=== PATIENT | male | born 1955 | race American Indian/Alaskan Native ===

== ENCOUNTER 2017-05-08 14:03 | Emergency (ER) | payer MEDICARE ==
[2017-05-08 14:05] VITALS: BMI 26.6
[2017-05-08 14:23] VITALS: PULSE 109; RESP 16; TEMP 98.6; O2SAT 100
--- NOTE | 2017-05-08 14:24 | ED PDOC ---
Arrival/HPI - General Chief Complaint: Headache Time Seen by Provider: 05/08/17 14:03 Historian: Patient - History of Present Illness Narrative History of Present Illness (Text): 05/08/17 14:21 A 61 year old male whose past medical history includes, cerebral atrophy and hypertension, presents to the Emergency department with two day duration dizziness, mild headache, and blurry vision. The patient describes that he feels a room spinning sensation. The patient denies any current pain. Patient denies fever, chills, cough, chest pain, shortness of breath, nausea, vomiting, diarrhea, or an other complaints. PMD: Dr. Bruno Medina Time/Duration: Other (2 days) Symptom Onset: Sudden Symptom Course: Unchanged Activities at Onset: Rest, Light Context: Home Past Medical History - Provider Review Nursing Documentation Reviewed: Yes - Cardiac Hx Cardiac Disorders: Yes Hx Hypertension: Yes - Pulmonary Hx Respiratory Disorders: No - Neurological Hx Neurological Disorder: No - HEENT Hx HEENT Disorder: No Hx Blind: No - Renal Hx Renal Disorder: No - Endocrine/Metabolic Hx Endocrine Disorders: No - Hematological/Oncological Hx Blood Disorders: No - Integumentary Hx Dermatological Disorder: No - Musculoskeletal/Rheumatological Hx Musculoskeletal Disorders: No - Gastrointestinal Hx Gastrointestinal Disorders: No - Genitourinary/Gynecological Hx Genitourinary Disorders: No - Psychiatric Hx Psychophysiologic Disorder: No Hx Substance Use: No Family/Social History - Physician Review Nursing Documentation Reviewed: Yes Family/Social History: No Known Family HX Smoking Status: Never Smoked Hx Alcohol Use: No Hx Substance Use: No Allergies/Home Meds Allergies/Adverse Reactions: Allergies meclizine Adverse Reaction (Verified 05/08/17 14:39) DIZZINESS Home Medications: Home Meds Medication Instructions Recorded Confirmed Unobtainable 05/08/17 05/08/17 Review of Systems - Physician Review All systems were reviewed & negative as marked: Yes - Review of Systems Constitutional: absent: Fevers, Night Sweats Eyes: Vision Changes (Blurry Vision) Respiratory: absent: SOB, Cough Cardiovascular: absent: Chest Pain Gastrointestinal: absent: Abdominal Pain, Diarrhea, Nausea, Vomiting Neurological: Headache, Dizziness Physical Exam Vital Signs Reviewed: Yes Vital Signs Temp Pulse Resp BP Pulse Ox 05/08/17 16:34 156/91 H 05/08/17 16:07 160/103 H 05/08/17 14:12 98.6 F 109 H 16 156/108 H 100 Temperature: Afebrile Blood Pressure: Hypertensive Pulse: Tachycardic Respiratory Rate: Normal Appearance: Positive for: Well-Appearing, Non-Toxic, Comfortable Pain Distress: None Mental Status: Positive for: Alert and Oriented X 3 - Systems Exam Head: Present: Atraumatic, Normocephalic Pupils: Present: PERRL Extroacular Muscles: Present: EOMI Conjunctiva: Present: Normal Mouth: Present: Moist Mucous Membranes Neck: Present: Normal Range of Motion Respiratory/Chest: Present: Clear to Auscultation, Good Air Exchange. No: Respiratory Distress, Accessory Muscle Use Cardiovascular: Present: Regular Rate and Rhythm, Normal S1, S2. No: Murmurs Abdomen: Present: Normal Bowel Sounds. No: Tenderness, Distention, Peritoneal Signs Back: Present: Normal Inspection Upper Extremity: Present: Normal Inspection. No: Cyanosis, Edema Lower Extremity: Present: Normal Inspection. No: Edema Neurological: Present: GCS=15, CN II-XII Intact, Speech Normal Skin: Present: Warm, Dry, Normal Color. No: Rashes Psychiatric: Present: Alert, Oriented x 3, Normal Insight, Normal Concentration Medical Decision Making ED Course and Treatment: 05/08/17 14:26 Impression: A 61 year old male with 2 day duration dizziness, blurry vision, and mild headache. Plan: -- EKG -- Head CT -- Urinalysis -- Labs -- Anivert -- Reassess and disposition Progress Notes: 05/08/17 14:23 EKG: Ordered, reviewed, and independently interpreted the EKG. Rate : 108 BPM Rhythm : Tachycardic Interpretation : No ST/T-wave changes. 05/08/17 14:27: Patient's orthostatic test negative. CT HEAD WITHOUT CONTRAST Dictator : Amos Urbano MD Report Date : 05/08/2017 15:07:14 IMPRESSION: No acute intracranial abnormalities. No significant findings to account for the clinical presentation. 05/08/17 15:57 pt reassesed: states symptoms persistnt offered overnight observation in hospital, r/o cva, as pt with vertigo/blurry vision pt refuses, but agrees to stay in ER for further obs. 05/08/17 16:32 pt reassesed: now asking for d/c. does not wish observation in hospital for dizziness/blurry vision., r/o cva. pt refuses. asking for d.c 05/08/17 16:53 Leaving Against Medical Advice (AMA): The patient is choosing to leave against medical advice. I have personally explained to the patient that choosing to do so may result in permanent bodily harm or . I have discussed at great length that without further evaluation and monitoring there may be unforeseen circumstances and/or deterioration causing permanent bodily harm or as a result of their choice. The patient is alert, oriented, and shows the mental capacity to make clear decisions regarding the patients health care at this time. The patient continues to wish to leave against medical advice. In light of the patients decision to leave against medical advice, the importance of follow-up has been discussed. The patient has been advised that they should return to the emergency room immediately if they change their mind at any time, or if their condition begins to change or worsen in any way. - Lab Interpretations Lab Results: 05/08/17 14:41 05/08/17 14:41 Lab Results 05/08/17 14:41: Sodium 135, Potassium 3.8, Chloride 103, Carbon Dioxide 22, Anion Gap 14, BUN 12, Creatinine 1.1, Est GFR ( Amer) > 60, Est GFR (Non- Af Amer) > 60, Random Glucose 116 H, Calcium 9.5, Magnesium 1.9, Total Bilirubin 0.7, AST 38, ALT 29, Alkaline Phosphatase 87, Lactate Dehydrogenase 615, Total Creatine Kinase 180, Troponin I < 0.01, Total Protein 8.3, Albumin 4.0, Globulin 4.3, Albumin/Globulin Ratio 0.9 L 05/08/17 14:41: PT 11.2, INR 1.04, APTT 27.5 05/08/17 14:41: WBC 10.6, RBC 5.16, Hgb 13.7 L, Hct 40.4 L, MCV 78.3 L, MCH 26.6 , MCHC 33.9, RDW 13.7, Plt Count 286, MPV 9.8, Gran % 40.2 L, Lymph % (Auto) 48.8 H, [place] % (Auto) 10.4 H, Eos % (Auto) 0.4 L, Baso % (Auto) 0.2, Gran # 4.26 , Lymph # 5.2 H, [place] # 1.1 H, Eos # 0.0, Baso # 0.02 05/08/17 14:20: Urine Color Yellow, Urine Appearance Clear, Urine pH 6.5, Ur Specific [place] 1.025, Urine Protein Trace H, Urine Glucose (UA) Negative, Urine Ketones Negative, Urine Blood Negative, Urine Nitrate Negative, Urine Bilirubin Negative, Urine Urobilinogen 4.0 H, Ur Leukocyte Esterase Negative, Urine RBC 0 - 2, Urine WBC 0 - 2, Ur Epithelial Cells 0 - 2, Urine Bacteria Large - RAD Interpretation Radiology Orders: 05/08/17 14:20 HEAD W/O CONTRAST [CT] Stat - Medication Orders Current Medication Orders: Discontinued Medications Diazepam (Valium) 2.5 mg IVP STAT STA PRN Reason: Protocol Stop: 05/08/17 16:02 Last Admin: 05/08/17 16:10 Dose: 2.5 mg Sodium Chloride (Sodium Chloride 0.9%) 1,000 mls @ 999 mls/hr IV .Q1H1M STA Stop: 05/08/17 15:57 Last Admin: 05/08/17 15:00 Dose: 999 mls/hr Meclizine HCl (Antivert) 50 mg PO STAT STA Stop: 05/08/17 14:21 Last Admin: 05/08/17 14:41 Dose: Not Given Non-Admin Reason: Patient Refused - Scribe Statement The provider has reviewed the documentation as recorded by the Mono Florez Provider Scribe Attestation: All medical record entries made by the Scribe were at my direction and personally dictated by me. I have reviewed the chart and agree that the record accurately reflects my personal performance of the history, physical exam, medical decision making, and the department course for this patient. I have also personally directed, reviewed, and agree with the discharge instructions and disposition. Disposition/Present on Arrival - Present on Arrival Any Indicators Present on Arrival: No History of DVT/PE: No History of Uncontrolled Diabetes: No Urinary Catheter: No History of Decub. Ulcer: No History Surgical Site Infection Following: None - Disposition Have Diagnosis and Disposition been Completed?: No Diagnosis: Dizziness, Headache Disposition: AGAINST MEDICAL ADVICE Disposition Time: 16:33 Condition: UNKNOWN Discharge Instructions (ExitCare): Acute Headache (ED), Dizziness (ED) Additional Instructions: please follow up with your doctor. return to er with worsening symptoms or concerns. Referrals: Bruno Medina JD, MD [Primary Care Provider] - Follow up with primary [facility] [Outside] - Follow up with primary Carlos Francis MD [Staff Provider] - Follow up with primary Naif Francis MD [Staff Provider] - Follow up with primary Forms: [employer] ([place])
[2017-05-08] MEDS ORDERED: Sodium Chloride 0.9% 1,000 ML IV STA (14:57)
[2017-05-08 14:59] LABS: BASO # 0.02 K/mm3 (0.0-2.0); BASO % 0.2 % (0.0-3.0); EOS % 0.4 % (1.5-5.0); GRAN # 4.26 (1.4-6.5); GRAN % 40.2 % (50.0-68.0); HEMOGLOBIN 13.7 g/dL (14.0-18.0); LYMPH # 5.2 (1.2-3.4); LYMPH % 48.8 % (22.0-35.0); MEAN CELL VOLUME 78.3 fl (80.0-105.0); MEAN CORPUSCULAR HEMOGLOBIN 26.6 pg (25.0-35.0); MEAN CORPUSCULAR HGB CONC 33.9 g/dl (31.0-37.0); MEAN PLATELET VOLUME 9.8 fl (7.0-11.0); MONO # 1.1 (0.1-0.6); MONO % 10.4 % (1.0-6.0); PLATELET COUNT 286 10^3/uL (120.0-450.0); RBC 5.16 10^6/uL (3.5-6.1); RED CELL DISTRIBUTION WIDTH 13.7 % (11.5-14.5); WHITE BLOOD COUNT 10.6 10^3/ul (4.5-11.0)
[2017-05-08 15:02] LABS: ALB/GLOB RATIO 0.9 (1.1-1.8); ALT/SGPT 29 U/L (7-56); AST/SGOT 38 U/L (15-59); BLOOD UREA NITROGEN 12 mg/dL (7-21); CALCIUM 9.5 mg/dL (8.4-10.5); GFR AFRICAN-AMERICAN > 60; GFR NON-AFRICAN AMERICAN > 60; MAGNESIUM 1.9 mg/dL (1.7-2.2)
[2017-05-08 15:06] LABS: INR 1.04 (0.93-1.08); PARTIAL THROMBOPLASTIN TIME 27.5 Seconds (23.7-30.8); PROTHROMBIN TIME 11.2 Seconds (9.9-11.8)
--- NOTE | 2017-05-08 15:08 | CT ---
PROCEDURE: CT HEAD WITHOUT CONTRAST. HISTORY: dizziness COMPARISON: None available. TECHNIQUE: Axial computed tomography images were obtained through the head/brain without intravenous contrast. Radiation dose: Total exam DLP = 725.84 mGy-cm. This CT exam was performed using one or more of the following dose reduction techniques: Automated exposure control, adjustment of the mA and/or kV according to patient size, and/or use of iterative reconstruction technique. FINDINGS: HEMORRHAGE: No intracranial hemorrhage. BRAIN: No mass effect or edema. No atrophy or chronic microvascular ischemic changes. VENTRICLES: Unremarkable. No hydrocephalus. CALVARIUM: Unremarkable. PARANASAL SINUSES: Unremarkable as visualized. No significant inflammatory changes. MASTOID AIR CELLS: Unremarkable as visualized. No inflammatory changes. OTHER FINDINGS: None. IMPRESSION: No acute intracranial abnormalities. No significant findings to account for the clinical presentation.
[2017-05-08 15:15] LABS: TROPONIN I < 0.01 ng/mL
[2017-05-08 15:34] LABS: PH,URINE 6.5 (4.7-8.0); URINE BILIRUBIN NEGATIVE (NEGATIVE); URINE BLOOD NEGATIVE (NEGATIVE); URINE GLUCOSE (UA) NEGATIVE (NEGATIVE); URINE LEUKOCYTE ESTERASE NEGATIVE Leu/uL (NEGATIVE); URINE NITRATE NEGATIVE (NEGATIVE); URINE PROTEIN TRACE mg/dL (<30 mg/dL)
[2017-05-08 15:37] LABS: URINE APPEARANCE CLEAR (CLEAR); URINE COLOR YELLOW (YELLOW)
[2017-05-08] MEDS ORDERED: diaZEpam 10 mg/2 ml Inj IVP STA (16:01)
[2017-05-08 16:23] LABS: URINE EPITHELIAL CELLS 0 - 2 /hpf (0-5); URINE RBC 0 - 2 /hpf (0-2); URINE WBC 0 - 2 /hpf (0-6)
[2017-05-08 16:24] LABS: URINE BACTERIA LARGE (NEG)
[2017-05-08 16:34] VITALS: BP 156/91
--- NOTE | 2017-05-09 13:22 | CARD ---
APPROVED REPORT EKG Measurement Heart [id number] TN 132P57 [id number] <Conclusion> Sinus tachycardia Minimal voltage criteria for LVH, may be normal variant Borderline ECG
== END 2017-05-08 17:09 | disposition left against medical advice (07) ==
LOC: ED 14:03
DX: R51 Headache (principal); R42 Dizziness and giddiness; I10 Essential (primary) hypertension; G31.9 Degenerative disease of nervous system, unspecified
CPT/HCPCS: 70450; 80053; 81001; 82550; 83615; 83735; 84484; 85025; 85610; 85730; 93005; 96361; 96374; 99285; J3360; J7040

== ENCOUNTER 2017-05-14 16:11 | Emergency (ER) | payer MEDICARE ==
[2017-05-14 16:11] VITALS: BMI 26.6
--- NOTE | 2017-05-14 16:37 | ED PDOC ---
Arrival/HPI - General Chief Complaint: Palpitations Time Seen by Provider: 05/14/17 16:21 Historian: Patient - History of Present Illness Narrative History of Present Illness (Text): 05/14/17 16:34 61 yo male with h/o HTN, Cerebral Atrophy, presents to the ED c/o palpitations and "feeling like I'm going to pass out". He states that he was watching television around 1pm when he started feeling a fullness in his forehead, then he started to get blurry vision and the feeling like he was going to pass out. Associated with palpitations. When he lays down it's worse. No headache but just a fullness he states. No trouble speaking or numbness. Has generalized weakness but no unilateral weakness. No trouble walking. He states he has thirt. Family history of diabetes. No trouble. No URI symptoms, cough, or urinary symptoms. No neck pain or rigidity. PMD: Dr. Bruno Medina 05/14/17 16:37 Past Medical History - Provider Review Nursing Documentation Reviewed: Yes - Infectious Disease Hx of Infectious Diseases: None - Cardiac Hx Cardiac Disorders: Yes Hx Hypertension: Yes - Pulmonary Hx Respiratory Disorders: No - Neurological Hx Neurological Disorder: No - HEENT Hx HEENT Disorder: No Hx Blind: No - Renal Hx Renal Disorder: No - Endocrine/Metabolic Hx Endocrine Disorders: No - Hematological/Oncological Hx Blood Disorders: No - Integumentary Hx Dermatological Disorder: No - Musculoskeletal/Rheumatological Hx Musculoskeletal Disorders: No - Gastrointestinal Hx Gastrointestinal Disorders: No - Genitourinary/Gynecological Hx Genitourinary Disorders: No - Psychiatric Hx Psychophysiologic Disorder: No Hx Substance Use: No Family/Social History - Physician Review Nursing Documentation Reviewed: Yes Family/Social History: Diabetes Smoking Status: Never Smoked Hx Alcohol Use: No Hx Substance Use: No Allergies/Home Meds Allergies/Adverse Reactions: Allergies meclizine Adverse Reaction (Verified 05/08/17 14:39) DIZZINESS Review of Systems - Physician Review All systems were reviewed & negative as marked: Yes - Review of Systems Constitutional: Normal Eyes: Normal ENT: Normal Respiratory: Normal Cardiovascular: Normal Gastrointestinal: Normal Genitourinary Male: Normal Musculoskeletal: Normal Skin: Normal Neurological: Normal Endocrine: Normal Hemo/Lymphatic: Normal Psychiatric: Normal Physical Exam Vital Signs Reviewed: Yes Vital Signs Temp Pulse Resp BP Pulse Ox 05/14/17 17:57 99.1 F 95 H 18 146/99 H 100 05/14/17 16:11 100.2 F H 112 H 18 112/93 H 98 Temperature: Afebrile Blood Pressure: Normal Pulse: Tachycardic Respiratory Rate: Normal Appearance: Positive for: Well-Appearing, Non-Toxic, Comfortable Pain Distress: None Mental Status: Positive for: Alert and Oriented X 3 Finger Stick Blood Glucose: 120 - Systems Exam Head: Present: Atraumatic, Normocephalic Pupils: Present: PERRL Extroacular Muscles: Present: EOMI Conjunctiva: Present: Normal Ears: Present: Normal, NORMAL TM. No: Erythema Mouth: Present: Moist Mucous Membranes Pharnyx: Present: Normal. No: ERYTHEMA, EXUDATE Nose (External): Present: Atraumatic Nose (Internal): Present: Normal Inspection Neck: Present: Normal Range of Motion. No: Meningeal Signs, MIDLINE TENDERNESS , Paraspinal Tenderness Respiratory/Chest: Present: Clear to Auscultation, Good Air Exchange. No: Respiratory Distress, Accessory Muscle Use Cardiovascular: Present: Regular Rate and Rhythm, Normal S1, S2. No: Murmurs Abdomen: Present: Normal Bowel Sounds. No: Tenderness, Distention, Peritoneal Signs Back: Present: Normal Inspection Upper Extremity: Present: Normal Inspection. No: Cyanosis, Edema Lower Extremity: Present: Normal Inspection. No: Edema Neurological: Present: GCS=15, CN II-XII Intact, Speech Normal, Motor Func Grossly Intact, Normal Sensory Function, Normal Cerebellar Funct, Norm Deep Tendon Reflexes, Memory Normal, Other (reproducible symptoms from sitting to laying) Skin: Present: Warm, Dry, Normal Color. No: Rashes Psychiatric: Present: Alert, Oriented x 3, Normal Insight, Normal Concentration Medical Decision Making ED Course and Treatment: 05/14/17 16:40 61 yo male with near syncope, palpitations, blurry vision and low grade fever r/ o viral syndrome r/o infectious etiology r/o near syncope/cardiac -- Labs -- CXR -- UA -- IVF -- Tylenol PO -- Reevaluation and disposition 05/14/17 17:31 Patient states now that the feeling he was getting is a lightheadedness but not like he was going to pass out. He states last time he was here that he got valium and that it worked for his symptoms. 05/14/17 18:30 Patient now states that he's been having these symptoms on and off for over a year. He's seen Dr. Francis and Dr. Chakraborty in the past for Neurology. He states that now he feels better after the Valium and wants to go home. He neuro exam is normal. No more blurry vision, dizziness or lightheadedness. He is walking with no ataxia. He will follow up with Dr. Francis in 2-3days. I advised him to return to the ED if he develops, numbness or weakness, symptoms worsen, or any other concern. - Lab Interpretations Lab Results: 05/14/17 16:25 05/14/17 16:25 Lab Results 05/14/17 16:25: Sodium 137, Potassium 4.2, Chloride 104, Carbon Dioxide 22, Anion Gap 15, BUN 12, Creatinine 1.1, Est GFR ( Amer) > 60, Est GFR (Non- Af Amer) > 60, Random Glucose 132 H, Calcium 9.6, Magnesium 2.1, Total Bilirubin 0.6, AST 41, ALT 33, Alkaline Phosphatase 101, Lactate Dehydrogenase 733 H, Total Creatine Kinase 151, Troponin I < 0.01, Total Protein 9.2 H, Albumin 4.1, Globulin 5.1, Albumin/Globulin Ratio 0.8 L 05/14/17 16:25: WBC 11.5 H, RBC 5.35, Hgb 14.4, Hct 42.0, MCV 78.5 L, MCH 26.9, MCHC 34.3, RDW 13.5, Plt Count 320, MPV 9.2, Gran % 41.0 L, Lymph % (Auto) 48.9 H, [place] % (Auto) 9.7 H, Eos % (Auto) 0.3 L, Baso % (Auto) 0.1, Gran # 4.73, Lymph # 5.6 H, [place] # 1.1 H, Eos # 0.0, Baso # 0.01 I have reviewed the lab results: Yes Interpretation: No clinic. lab abnormalty - RAD Interpretation Radiology Orders: 05/14/17 16:33 CHEST PORTABLE [RAD] Stat CXR nl Hemodialysis Lab Technician: ED Physician - EKG Interpretation Interpreted by ED Physician: Yes (Sinus tachy at 112bpm with no ST elevations, LVH) Type: 12 lead EKG - Medication Orders Current Medication Orders: Sodium Chloride (Sodium Chloride 0.9%) 1,000 mls @ 100 mls/hr IV .Q10H JANKI Last Admin: 05/14/17 16:46 Dose: 100 mls/hr Discontinued Medications Acetaminophen (Tylenol 325mg Tab) 975 mg PO STAT STA Stop: 05/14/17 16:40 Last Admin: 05/14/17 16:48 Dose: Not Given Non-Admin Reason: Patient Refused Diazepam (Valium) 5 mg PO ONCE ONE PRN Reason: Protocol Stop: 05/14/17 17:32 Last Admin: 05/14/17 18:00 Dose: 5 mg Disposition/Present on Arrival - Present on Arrival Any Indicators Present on Arrival: No History of DVT/PE: No History of Uncontrolled Diabetes: No Urinary Catheter: No History of Decub. Ulcer: No History Surgical Site Infection Following: None - Disposition Have Diagnosis and Disposition been Completed?: Yes Diagnosis: Dizziness Disposition: HOME/ ROUTINE Disposition Time: 18:32 Patient Plan: Discharge Patient Problems: Current Active Problems Problem Status Onset Dizziness Acute Condition: IMPROVED Discharge Instructions (ExitCare): Dizziness (ED), Lightheadedness (ED) Additional Instructions: Mr Hutson, thank you for letting us take care of you today. Your provider was Dr. Cuellar. You were treated for Dizziness/Lightheadedness. The emergency medical care you received today was directed at your acute symptoms. If you were prescribed any medication, please fill it and take as directed. It may take several days for your symptoms to resolve. Return to the Emergency Department if your symptoms worsen, do not improve, or if you have any other problems. Please contact your doctor or call one of the physicians/clinics you have been referred to that are listed on the Patient Visit Information form that is included in your discharge packet. Bring any paperwork you were given at discharge with you along with any medications you are taking to your follow up visit. Our treatment cannot replace ongoing medical care by a primary care provider (PCP) outside of the emergency department. Thank you for allowing the [facility] team to be part of your care today. If you had an X-Ray or CT scan: A Radiologist will review the ED reading if any change in treatment is needed we will contact you. If you had a blood, urine, or wound culture: It will take several days for the results, if any change in treatment is needed we will contact you. If you had an STI test: It will take 48 hours for the results. Please call after 1 week if you have not heard back. Prescriptions: diaZEpam [Valium] 5 mg PO Q8 PRN #5 tab PRN Reason: Dizziness Referrals: Bruno Medina JD, MD [Primary Care Provider] - Follow up with primary Naif Francis MD [Staff Provider] - Follow up with primary Forms: [employer] ([place])
[2017-05-14 16:42] LABS: BASO # 0.01 K/mm3 (0.0-2.0); BASO % 0.1 % (0.0-3.0); EOS % 0.3 % (1.5-5.0); GRAN # 4.73 (1.4-6.5); LYMPH # 5.6 (1.2-3.4); LYMPH % 48.9 % (22.0-35.0); MEAN CELL VOLUME 78.5 fl (80.0-105.0); MEAN CORPUSCULAR HEMOGLOBIN 26.9 pg (25.0-35.0); MEAN CORPUSCULAR HGB CONC 34.3 g/dl (31.0-37.0); MEAN PLATELET VOLUME 9.2 fl (7.0-11.0); MONO # 1.1 (0.1-0.6); MONO % 9.7 % (1.0-6.0); RED CELL DISTRIBUTION WIDTH 13.5 % (11.5-14.5); WHITE BLOOD COUNT 11.5 10^3/ul (4.5-11.0)
[2017-05-14] MEDS ORDERED: Sodium Chloride 0.9% 1,000 ML IV SCH (16:45)
[2017-05-14 16:54] LABS: ALB/GLOB RATIO 0.8 (1.1-1.8); ALKALINE PHOSPHATASE 101 U/L (38-133); ALT/SGPT 33 U/L (7-56); AST/SGOT 41 U/L (15-59); BILIRUBIN,TOTAL 0.6 mg/dL (0.2-1.3); BLOOD UREA NITROGEN 12 mg/dL (7-21); CALCIUM 9.6 mg/dL (8.4-10.5); CARBON DIOXIDE 22 mmol/L (21-33); CHLORIDE 104 mmol/L (98-107); GFR AFRICAN-AMERICAN > 60; GLUCOSE,RANDOM 132 mg/dL (70-110); MAGNESIUM 2.1 mg/dL (1.7-2.2); POTASSIUM 4.2 mmol/L (3.6-5.0); SODIUM 137 mmol/L (132-148); TOTAL PROTEIN 9.2 g/dL (5.8-8.3)
[2017-05-14 17:07] LABS: TROPONIN I < 0.01 ng/mL
--- NOTE | 2017-05-14 17:38 | RAD ---
HISTORY: near syncope COMPARISON: No prior. FINDINGS: LUNGS: No active pulmonary disease. PLEURA: No significant pleural effusion identified, no pneumothorax apparent. CARDIOVASCULAR: Normal. OSSEOUS STRUCTURES: No significant abnormalities. VISUALIZED UPPER ABDOMEN: Normal. OTHER FINDINGS: None. IMPRESSION: No active disease.
[2017-05-14 17:57] VITALS: O2SAT 100
[2017-05-14 18:34] LABS: PH,URINE 6.5 (4.7-8.0); URINE APPEARANCE CLEAR (CLEAR); URINE BILIRUBIN NEGATIVE (NEGATIVE); URINE BLOOD NEGATIVE (NEGATIVE); URINE COLOR YELLOW (YELLOW); URINE GLUCOSE (UA) NEGATIVE (NEGATIVE); URINE KETONE TRACE mg/dL (NEGATIVE); URINE LEUKOCYTE ESTERASE NEGATIVE Leu/uL (NEGATIVE); URINE PROTEIN 30 mg/dL (<30 mg/dL)
[2017-05-14 18:44] VITALS: BP 121/64; PULSE 85; RESP 16; TEMP 99
[2017-05-14 19:34] LABS: URINE RBC 0 - 2 /hpf (0-2)
--- NOTE | 2017-05-15 10:58 | CARD ---
APPROVED REPORT EKG Measurement Heart [id number] [id number] <Conclusion> Sinus tachycardia Possible Left atrial enlargement Left ventricular hypertrophy Abnormal ECG
== END 2017-05-14 18:45 | disposition home or self-care (01) ==
LOC: ED 16:11
DX: R42 Dizziness and giddiness (principal); I10 Essential (primary) hypertension
CPT/HCPCS: 71010; 80053; 81001; 82550; 83615; 83735; 84484; 85025; 93005; 99285; J7040

== ENCOUNTER 2017-07-26 22:18 | Emergency (ER) | payer MEDICARE ==
[2017-07-26 22:18] VITALS: BMI 26.6
[2017-07-26 23:13] VITALS: RESP 18; TEMP 98.2; O2SAT 98
--- NOTE | 2017-07-26 23:20 | ED PDOC ---
Arrival/HPI - General Chief Complaint: Dizziness/Lightheaded Time Seen by Provider: 07/26/17 23:04 Historian: Patient - History of Present Illness Narrative History of Present Illness (Text): 07/26/17 23:19 A 61 year old male, whose past medical history includes HIV, cerebral atrophy and hypertension, presents to the emergency department complaining of headache discomfort and occassional dizziness. Patient states he has a history of this in the past. Patient reports to the emergency department "to get checked out again". Denies any loss of consciousness or trauma. Patient denies any chest pain,shortness of breath, neck pain,fever or any other complaints at this time. Symptom Onset: Sudden Symptom Course: Unchanged Activities at Onset: Rest Context: Home Past Medical History - Provider Review Nursing Documentation Reviewed: Yes - Infectious Disease Hx of Infectious Diseases: None - Cardiac Hx Cardiac Disorders: Yes Hx Hypertension: Yes - Pulmonary Hx Respiratory Disorders: No - Neurological Hx Neurological Disorder: No - HEENT Hx HEENT Disorder: No Hx Blind: No - Renal Hx Renal Disorder: No - Endocrine/Metabolic Hx Endocrine Disorders: No - Hematological/Oncological Hx Blood Disorders: No - Integumentary Hx Dermatological Disorder: No - Musculoskeletal/Rheumatological Hx Musculoskeletal Disorders: No - Gastrointestinal Hx Gastrointestinal Disorders: No - Genitourinary/Gynecological Hx Genitourinary Disorders: No - Psychiatric Hx Psychophysiologic Disorder: No Hx Substance Use: No - Anesthesia Hx Anesthesia: No Family/Social History - Physician Review Nursing Documentation Reviewed: Yes Family/Social History: No Known Family HX Smoking Status: Never Smoked Hx Alcohol Use: No Hx Substance Use: No Allergies/Home Meds Allergies/Adverse Reactions: Allergies meclizine Adverse Reaction (Verified 05/08/17 14:39) DIZZINESS Review of Systems - Physician Review All systems were reviewed & negative as marked: Yes - Review of Systems Respiratory: absent: SOB Musculoskeletal: absent: Neck Pain Neurological: Headache, Dizziness Physical Exam Vital Signs Reviewed: Yes Vital Signs Temp Pulse Resp BP Pulse Ox 07/27/17 01:35 70 18 132/76 98 07/26/17 23:11 98.2 F 73 18 129/91 H 98 Temperature: Afebrile Blood Pressure: Hypertensive Pulse: Regular Respiratory Rate: Normal Appearance: Positive for: Well-Appearing, Non-Toxic, Comfortable Pain Distress: None Mental Status: Positive for: Alert and Oriented X 3 - Systems Exam Head: Present: Atraumatic, Normocephalic Pupils: Present: PERRL Extroacular Muscles: Present: EOMI Conjunctiva: Present: Normal Ears: Present: NORMAL TM Mouth: Present: Moist Mucous Membranes Pharnyx: Present: Normal Neck: Present: Normal Range of Motion. No: Meningeal Signs Respiratory/Chest: Present: Clear to Auscultation, Good Air Exchange. No: Respiratory Distress, Accessory Muscle Use Cardiovascular: Present: Regular Rate and Rhythm, Normal S1, S2. No: Murmurs Abdomen: Present: Normal Bowel Sounds. No: Tenderness, Distention, Peritoneal Signs Back: Present: Normal Inspection Upper Extremity: Present: Normal Inspection. No: Cyanosis, Edema Lower Extremity: Present: Normal Inspection. No: Edema Neurological: Present: GCS=15, CN II-XII Intact, Speech Normal Skin: Present: Warm, Dry, Normal Color. No: Rashes Psychiatric: Present: Alert, Oriented x 3, Normal Insight, Normal Concentration Medical Decision Making ED Course and Treatment: 07/26/17 23:17 Impression: A 61 year old male with dizziness and headache. Plan: -- CT head -- labs -- Reassess and disposition Prior Visits: Notes and results from previous visits were reviewed. Patient was last seen in the emergency department on 05/14/17 for evaluation of palpitations. Progress Notes: CT Head Without Intravenous Contrast FINDINGS: Limitations: Suboptimal positioning. Brain: Minimal atrophy. No intracranial hemorrhage. No definite edema. Ventricles: No hydrocephalus. Bones/joints: No acute fracture. Soft tissues: Unremarkable. Sinuses: Scattered mild mucosal thickening. Mastoid air cells: No mastoid effusion. IMPRESSION: 1. No acute intracranial abnormality. 2. Incidental/non-acute findings are described above. Dictated and Authenticated by: Roberto Mckeon MD 07/27/2017 12:55 AM Eastern Time ([place] & [place]) 07/27/17 01:05 On re-evaluation, patient feels better and is in no acute distress. I have discussed the results and plan with the patient, who expresses understanding. Patient in agreement with plan to be discharged home. Patient is stable for discharge. Patient was instructed to follow up with physician or return if symptoms worsen or new concerning symptoms arise. - Lab Interpretations Lab Results: 07/26/17 23:20 07/26/17 23:20 Lab Results 07/26/17 23:20: WBC 7.7 D, RBC 4.93, Hgb 13.2 L, Hct 39.3 L, MCV 79.7 L, MCH 26.8, MCHC 33.6, RDW 17.0 H, Plt Count 258, MPV 8.8 07/26/17 23:20: Sodium 142, Potassium 4.2, Chloride 109, Carbon Dioxide 27, Anion Gap 10, BUN 14, Creatinine 1.2, Est GFR ( Amer) > 60, Est GFR (Non- Af Amer) > 60, Random Glucose 118 H, Calcium 9.7, Total Bilirubin 0.5, AST 42, ALT 57 H, Alkaline Phosphatase 104, Total Protein 9.0 H, Albumin 3.8, Globulin 5.2, Albumin/Globulin Ratio 0.7 L I have reviewed the lab results: Yes - RAD Interpretation Radiology Orders: 07/26/17 23:13 HEAD W/O CONTRAST [CT] Stat - Medication Orders Current Medication Orders: Discontinued Medications Ibuprofen (Motrin Tab) 800 mg PO STAT STA Stop: 07/27/17 01:08 Last Admin: 07/27/17 01:11 Dose: 800 mg MAR Pain/Vitals Document 07/27/17 01:11 GMD (Rec: 07/27/17 01:11 GMD [id number]) Pain Reassessment Is This A Pain ReAssessment? No Sleep Is patient sleeping during reassessment? 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 I have reviewed the chart and agree that the record accurately reflects my personal performance of the history, physical exam, medical decision making, and the department course for this patient. I have also personally directed, reviewed, and agree with the discharge instructions and disposition. Disposition/Present on Arrival - Present on Arrival Any Indicators Present on Arrival: No History of DVT/PE: No History of Uncontrolled Diabetes: No Urinary Catheter: No History of Decub. Ulcer: No History Surgical Site Infection Following: None - Disposition Have Diagnosis and Disposition been Completed?: Yes Diagnosis: Headache Disposition: HOME/ ROUTINE Disposition Time: :36 Patient Plan: Discharge Condition: GOOD Discharge Instructions (ExitCare): General Headache (ED) Additional Instructions: Take meds as prescribed/follow up with your doctor this week Prescriptions: Acetaminophen/Butalbital/Caf [Fioricet] 1 tab PO Q6 PRN #12 tab PRN Reason: Headache Forms: [facility] (Welsh)
[2017-07-26 23:42] LABS: HEMATOCRIT 39.3 % (42.0-52.0); MEAN CELL VOLUME 79.7 fl (80.0-105.0); MEAN CORPUSCULAR HEMOGLOBIN 26.8 pg (25.0-35.0); MEAN CORPUSCULAR HGB CONC 33.6 g/dl (31.0-37.0); MEAN PLATELET VOLUME 8.8 fl (7.0-11.0); WHITE BLOOD COUNT 7.7 10^3/ul (4.5-11.0)
[2017-07-26 23:43] LABS: ALB/GLOB RATIO 0.7 (1.1-1.8); ALKALINE PHOSPHATASE 104 U/L (38-126); ALT/SGPT 57 U/L (7-56); AST/SGOT 42 U/L (17-59); BILIRUBIN,TOTAL 0.5 mg/dL (0.2-1.3); BLOOD UREA NITROGEN 14 mg/dL (7-21); CALCIUM 9.7 mg/dL (8.4-10.5); CARBON DIOXIDE 27 mmol/L (21-33); CHLORIDE 109 mmol/L (95-110); GFR AFRICAN-AMERICAN > 60; GLUCOSE,RANDOM 118 mg/dL (70-110); POTASSIUM 4.2 mmol/L (3.6-5.0); SODIUM 142 mmol/L (132-148)
--- NOTE | 2017-07-27 00:55 | CT ---
EXAM: CT Head Without Intravenous Contrast CLINICAL HISTORY: 61 years old, male; Signs and symptoms; Dizziness; Additional info: Dizzy TECHNIQUE: Axial computed tomography images of the head/brain without intravenous contrast. All CT scans at this facility use one or more dose reduction techniques, viz.: automated exposure control; ma/kV adjustment per patient size (including targeted exams where dose is matched to indication; i.e. head); or iterative reconstruction technique. COMPARISON: CT - HEAD W/O CONTRAST 2017-05-08 14:43 FINDINGS: Limitations: Suboptimal positioning. Brain: Minimal atrophy. No intracranial hemorrhage. No definite edema. Ventricles: No hydrocephalus. Bones/joints: No acute fracture. Soft tissues: Unremarkable. Sinuses: Scattered mild mucosal thickening. Mastoid air cells: No mastoid effusion. IMPRESSION: 1. No acute intracranial abnormality. 2. Incidental/non-acute findings are described above.
[2017-07-27 01:36] VITALS: BP 132/76; PULSE 70
== END 2017-07-27 01:40 | disposition home or self-care (01) ==
LOC: ED 22:18
DX: R51 Headache (principal); I10 Essential (primary) hypertension

== ENCOUNTER 2017-07-27 18:37 | Emergency (ER) | payer MEDICARE ==
[2017-07-27 18:37] VITALS: BMI 26.6
[2017-07-27 19:02] VITALS: RESP 16; TEMP 98.1; O2SAT 100
[2017-07-27] MEDS ORDERED: Sodium Chloride 0.9% 1,000 ML IV STA (19:28)
[2017-07-27] MEDS ORDERED: DiphenhydrAMINE 12.5 mg/5 ml LIQ UD (5 ml) PO STA (19:28)
--- NOTE | 2017-07-27 19:46 | ED PDOC ---
Arrival/HPI - General Chief Complaint: Dizziness/Lightheaded Time Seen by Provider: 07/27/17 19:04 Historian: Patient - History of Present Illness Narrative History of Present Illness (Text): 07/27/17 19:34 A 61 year old male, whose past medical history includes HIV with last cd4 count of 321, cerebral atrophy, and hypertension, presents to the emergency department complaining of a slow onset headache since yesterday. Patient notes associated dizziness, which he describes as a spinning sensation. Patient reports he has experienced these symptoms intermittently for the past few years and is unsure of ideology. Patient was evaluated in the emergency room yesterday and discharged with no acute findings. Patient felt better after discharge but states he did not fill his prescription for Fioricet. Patient returns today for same complaints. He denies any fever, chills, nausea, vomiting , abdominal pain, chest pain, shortness of breath or any other complaints. PMD: Dr. Bruno Medina Time/Duration: Other (Yesterday) Symptom Course: Intermittent Quality: Other Context: Home Past Medical History - Provider Review Nursing Documentation Reviewed: Yes - Infectious Disease Hx of Infectious Diseases: None - Cardiac Hx Cardiac Disorders: Yes Hx Hypertension: Yes - Pulmonary Hx Respiratory Disorders: No - Neurological Hx Neurological Disorder: No - HEENT Hx HEENT Disorder: No Hx Blind: No - Renal Hx Renal Disorder: No - Endocrine/Metabolic Hx Endocrine Disorders: No - Hematological/Oncological Hx Blood Disorders: Yes - Integumentary Hx Dermatological Disorder: No - Musculoskeletal/Rheumatological Hx Musculoskeletal Disorders: No - Gastrointestinal Hx Gastrointestinal Disorders: No - Genitourinary/Gynecological Hx Genitourinary Disorders: No - Psychiatric Hx Psychophysiologic Disorder: No Hx Substance Use: No - Anesthesia Hx Anesthesia: No Family/Social History - Physician Review Nursing Documentation Reviewed: Yes Family/Social History: No Known Family HX Smoking Status: Never Smoked Hx Alcohol Use: No Hx Substance Use: No Allergies/Home Meds Allergies/Adverse Reactions: Allergies meclizine Adverse Reaction (Verified 07/27/17 19:02) DIZZINESS Review of Systems - Physician Review All systems were reviewed & negative as marked: Yes - Review of Systems Constitutional: absent: Fevers, Night Sweats Respiratory: absent: SOB Cardiovascular: absent: Chest Pain Gastrointestinal: absent: Abdominal Pain, Nausea, Vomiting Neurological: Headache, Dizziness. absent: Focal Weakness, Gait Changes, Speech Changes, Facial Droop, Disequilibrium, Seizure Physical Exam Vital Signs Reviewed: Yes Vital Signs Temp Pulse Resp BP Pulse Ox 07/27/17 18:59 98.1 F 97 H 16 144/88 100 Temperature: Afebrile Blood Pressure: Normal Pulse: Regular Respiratory Rate: Normal Appearance: Positive for: Well-Appearing, Non-Toxic, Comfortable Pain Distress: None Mental Status: Positive for: Alert and Oriented X 3 - Systems Exam Head: Present: Atraumatic, Normocephalic Pupils: Present: PERRL Extroacular Muscles: Present: EOMI Conjunctiva: Present: Normal Mouth: Present: Moist Mucous Membranes Pharnyx: Present: Normal. No: ERYTHEMA, EXUDATE Neck: Present: Normal Range of Motion Respiratory/Chest: Present: Clear to Auscultation, Good Air Exchange. No: Respiratory Distress, Accessory Muscle Use Cardiovascular: Present: Regular Rate and Rhythm, Normal S1, S2. No: Murmurs Abdomen: Present: Normal Bowel Sounds. No: Tenderness, Distention, Peritoneal Signs Back: Present: Normal Inspection Upper Extremity: Present: Normal Inspection. No: Cyanosis, Edema Lower Extremity: Present: Normal Inspection. No: Edema Neurological: Present: GCS=15, CN II-XII Intact, Speech Normal, Motor Func Grossly Intact, Normal Cerebellar Funct, Gait Normal Skin: Present: Warm, Dry, Normal Color. No: Rashes Psychiatric: Present: Alert, Oriented x 3, Normal Insight, Normal Concentration Medical Decision Making ED Course and Treatment: 07/27/17 19:34 Impression: A 61 year old male with long-standing headache and dizziness with no acute changes. Seen already yesterday for the same; labs and brain CT with no acute findings. Plan: -- Benadryl, Reglan and IV fluids -- Reassess and disposition Progress Notes: 07/27/17 20:57 Patient with noted history with no acute findings. Labs and brain CT with no acute findings. He did not fill the fioricet script and neuro exam is unremarkable. Patient says though he has had this for years, he does not recall what he was told what the cause is and thinks he may have a seen a neurologist once years ago. Given the meds above and reports full resolution of dizziness and headache. He says he feels jittery from medicine, possibly the reglan. No indication for further workup or admission at this time. Patient is ok for d/c to f/u his pmd and neurology. - Medication Orders Current Medication Orders: Discontinued Medications Diphenhydramine HCl (Benadryl) 25 mg PO STAT STA Stop: 07/27/17 19:29 Last Admin: 07/27/17 19:48 Dose: 25 mg Sodium Chloride (Sodium Chloride 0.9%) 1,000 mls @ 999 mls/hr IV .Q1H1M STA Stop: 07/27/17 20:28 Last Admin: 07/27/17 19:47 Dose: 999 mls/hr eMAR Start Stop Document 07/27/17 19:47 JOL (Rec: 07/27/17 19:47 JOL [id number]) Intravenous Solution Start Date 07/27/17 Start Time 19:47 End Date 07/27/17 End time 20:48 Total Infusion Time 61 Metoclopramide HCl (Reglan) 10 mg IVP STAT STA Stop: 07/27/17 19:29 Last Admin: 07/27/17 19:47 Dose: 10 mg IVP Administration Document 07/27/17 19:47 JOL (Rec: 07/27/17 19:47 JOL [id number]) Charges for Administration # of IVP Administrations 1 - Scribe Statement The provider has reviewed the documentation as recorded by the Mono Cruz Provider Scribe Attestation: All medical record entries made by the Scribe were at my direction and personally dictated by me. I have reviewed the chart and agree that the record accurately reflects my personal performance of the history, physical exam, medical decision making, and the department course for this patient. I have also personally directed, reviewed, and agree with the discharge instructions and disposition. Disposition/Present on Arrival - Present on Arrival Any Indicators Present on Arrival: No History of DVT/PE: No History of Uncontrolled Diabetes: No Urinary Catheter: No History of Decub. Ulcer: No History Surgical Site Infection Following: None - Disposition Have Diagnosis and Disposition been Completed?: Yes Diagnosis: Headache, Dizziness Disposition: HOME/ ROUTINE Disposition Time: 20:50 Patient Plan: Discharge Condition: GOOD Discharge Instructions (ExitCare): Dizziness (ED), Vertigo (ED), Acute Headache (ED) Additional Instructions: Drink plenty of fluids. Fill the prescription for the fioricet given to you yesterday. Follow up with neurology and your primary care doctor. Return to the emergency department if any new concerning symptoms. Referrals: Bruno Medina JD, MD [Family Provider] - Follow up with primary Naif Francis MD [Staff Provider] - Follow up with primary Forms: [facility] ([place]akh)
[2017-07-28 01:26] VITALS: BP 140/78; PULSE 88
== END 2017-07-27 20:57 | disposition home or self-care (01) ==
LOC: ED 18:37
DX: R51 Headache (principal); R42 Dizziness and giddiness; I10 Essential (primary) hypertension
CPT/HCPCS: 96361; 96374; 99285; J2765; J7040